=== PATIENT | female | born 1950 | race Caucasian/White ===

== ENCOUNTER 2020-03-16 15:18 | Emergency (ER) | payer MEDICARE, SELFPAY ==
[2020-03-16 15:48] VITALS: BP 176/82; PULSE 84; RESP 18; TEMP 37.3; O2SAT 99; BMI 20.5
[2020-03-16 16:56] VITALS: BP 162/90; PULSE 62; TEMP 36.8; O2SAT 99
--- NOTE | 2020-03-16 17:17 | ED_ITS ---
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 Right after that she moved to [place] with her to live on a power boat and cruise around [place]. She denies any fall or injury. However since the surgery she has developed progressively worsening pain and discomfort in her low back to the point that it is intolerable currently. She denies any recent new fall or injury. She she denies any numbness or loss of sensation arm over her perineum or rectum. She denies any urinary retention or incontinence of urine or stool. She has had shooting pain down her right leg. She states that all of her symptoms originally started on the left but now since surgery have moved to the right side. At rest her pain is 5/10 and when she is moving in the pain as shooting it is 6 to 7/10 in intensity. She has had no fever chills or sweats cough shortness of breath chest pain nausea vomiting diarrhea melena hematochezia incontinence of stool or urine or any urinary symptoms. She does not smoke cigarettes. Related Data Home Medications Medication Instructions Recorded Confirmed zolpidem 5 mg PO BEDTIME #0 01/24/17 03/16/20 Previous Rx's Medication Instructions Recorded cyclobenzaprine 10 mg PO TID PRN #15 tab 03/16/20 hydrocodone-acetaminophen [[place]] 1 tab PO Q4-6H PRN #12 tab 03/16/20 ibuprofen 600 mg PO Q6H PRN #30 tab 03/16/20 Allergies Allergy/AdvReac Type Severity Reaction Status Date / Time DEMORAL Allergy Unknown Hallucinati Uncoded 03/16/20 15:53 ng Review of Systems Review of Systems Narrative: Review of systems were all negative except for those mentioned in the history of present illness. Patient History Social History Smoking Status: Never smoker Smoking Status: Never smoker alcohol intake frequency: 0-2 drinks per day Substance Use Type: does not use Exam Narrative Exam Narrative: PHYSICAL EXAM: CONSTITUTIONAL: Awake, Alert, Oriented, Coherent, Cooperative in NAD. Does not appear toxic or ill. HEAD: AT/NC EENT: PERRL, FROM of eyes, no discharge, no nystagmus NOSE:No epistaxis or nasal drainage MOUTH:Oral mucosa is moist and pink, NECK: Supple, no obvious JVD, Trachea is midline without stridor, no palpable LN. SPINE: Patient has mild tenderness to palpation over the lower lumbar spine. There appears to be a curvature in the lumbar spine towards the her left. The surgical scar for the spinal cyst removal appears to be over the sacrum. The patient is tender to palpation over her left SI joint but no tenderness over her right SI joint no tenderness over either sciatic notches. THORAX: No deformity, retractions, chest wall tenderness. LUNGS: Clear, symmetrical breath sounds without respiratory distress. HEART: Normal heart tones, regular rhythm and rate without murmur. ABDOMEN: Soft, non-tender, no guarding, rebound, rigidity or palpable mass. EXTREMITIES: No edema, deformity, tenderness or cyanosis. SKIN: No rash, bruising, petechiae or purpura. NEURO: Awake, alert, oriented, conversive, cranial nerves II-XII are symmetrical , moves all 4 extremities and is ambulatory. The patient seems to have slight wavering and weakness on the right holding it against gravity. However her strength on dorsiflexion and plantar flexion of both feet are symmetrical. Sensation is within normal limits. Patellar reflexes were 0 to 1+ symmetrically. MENTAL HEALTH: Does not appear anxious or depressed. Initial Vital Signs Initial Vital Signs: Vital Signs Temperature 99.2 F 03/16/20 15:48 Pulse Rate 84 03/16/20 15:48 Respiratory Rate 18 03/16/20 15:48 Blood Pressure 176/82 H 03/16/20 15:48 Pulse Oximetry 99 03/16/20 15:48 Course Course Course Narrative: 1745: I was informed that MRI leaves at 4:00 p.m.. The patient may not be able to get her MRI today. I am always concerned when the patient has had surgery on her spine and she continues to have progressively worsening pain with the development of sciatica. At the present time I am check ing inflammatory markers to make sure the patient does not have an infection or possible abscess. I will discuss the options with the patient being advised to return to have arm an MRI. 1755: I discussed with the patient that MRI is not available tonight and she has agreed to return tomorrow for an MRI of her lower back. In the meantime I will discharge her home with a diagnosis of low back pain with sciatica and place her on cyclobenzaprine 10 mg 3 times a day as needed for muscle spasms and [place] 05/325as a rescue medication. Orders Ordered: ED Orders 03/16/20 17:12 MR lumbar spine w con Stat 03/16/20 17:52 C-Reactive Protein Quant Stat Complete Blood Count AUTO DIFF Stat Comprehensive Metabolic Panel Stat Creatine Kinase Stat Erythrocyte Sedimentation Rate Stat Discontinued Medications Morphine Sulfate (Morphine) 4 mg IV NOW ONE Stop: 03/16/20 17:13 Last Admin: 03/16/20 19:00 Dose: 4 mg Documented by: REECE Ondansetron HCl (Zofran) 4 mg IV NOW ONE Stop: 03/16/20 17:17 Last Admin: 03/16/20 19:00 Dose: 4 mg Documented by: REECE Vital Signs Vital signs: Vital Signs - 8 hr 03/16/20 15:48 03/16/20 16:56 03/16/20 18:07 Temperature 99.2 F 98.2 F Pulse Rate 84 62 57 L Respiratory Rate 18 Blood Pressure 176/82 H 162/90 H 172/81 H Pulse Oximetry 99 99 100 MDM - Back Pain/Injury Lab Data Result diagrams: 03/16/20 17:52 03/16/20 17:52 Labs: Lab Results 03/16/20 03/16/20 Range/Units 17:52 17:52 WBC 6.0 (4.5-11.0) X10^3/uL RBC 4.00 (4.0-5.2) X10^6/uL Hgb 12.3 (12.0-16.0) g/dL Hct 36.9 (36-46) % MCV 92.2 (80-100) fL MCH 30.9 (26-34) PG MCHC 33.5 (30-36) % RDW 13.9 (11.6-14.8) % Plt Count 228 (150-400) X10^3/uL Neut % (Auto) 71.5 (50-75) % Lymph % (Auto) 19.5 L (25-40) % [place] % (Auto) 6.9 (3-14) % Eos % (Auto) 1.2 L (2-4) % Baso % (Auto) 0.9 (0-2) % Neut # (Auto) 4300 (5126-6977) /uL Lymph # (Auto) 1200 (4278-8592) /uL [place] # (Auto) 400 (0-900) /uL Eos # (Auto) 100 (0-450) /uL Baso # (Auto) 100 (0-100) /uL ESR 6 (0-20) MM/HR Sodium 135 L (137-145) mmol/L Potassium 4.2 (3.4-5.1) mmol/L Chloride 101 (98-107) mmol/L Carbon Dioxide 31 (22-32) mmol/L BUN 13 (7-17) mg/dL Creatinine 0.69 (0.52-1.04) mg/dL Estimated GFR > 60.0 (>60) mL/min BUN/Creatinine Ratio 18.8 (6-22) Glucose 84 (80-110) mg/dL Calcium 9.6 (8.4-10.2) mg/dL Total Bilirubin 0.7 (0.2-1.3) mg/dL AST 36 (14-36) IU/L ALT 21 (<35) IU/L Alkaline Phosphatase 53 (38-126) U/L Total Creatine Kinase 155 H (30-135) U/L C-Reactive Protein < 0.5 (<1.0) mg/dL Total Protein 6.6 (6.3-8.2) g/dL Albumin 4.2 (3.5-5.0) g/dL Globulin 2.4 (1.7-4.1) g/dL Albumin/Globulin Ratio 1.8 (1.0-2.8) Discharge Plan Departure Patient Disposition: Home Clinical Impression: Acute low back pain Qualifiers: Back pain laterality: midline Sciatica presence: with sciatica Sciatica laterality: sciatica of right side Qualified Code(s): M54.41 - Lumbago with sciatica, right side Sciatica Qualifiers: Laterality: right Qualified Code(s): M54.31 - Sciatica, right side Discharge Date/Time: 03/16/20 19:16 Instructions: DI for Low Back Pain, DI for Sciatica, DI for Back Strain or Sprain Activity Restrictions/Additional Instructions: 1. Return tomorrow arm in the morning to be scheduled for an MRI of your lumbar spine. 2. If you develop worsening pain or discomfort you need to return to the emergency department. 3. Take Cyclobenzaprine 10 mg., 3 times a day for muscle spasms 4. Take [place] 5/325 , 1 tablet every 4-6 hours for sever pain 5. Take Ibuprofen 600 mg every 6 hours for pain Prescriptions: New cyclobenzaprine 10 mg tablet 10 mg PO TID PRN (Reason: muscle spasm) Qty: 15 RF: 0 ibuprofen 600 mg tablet 600 mg PO Q6H PRN (Reason: pain) Qty: 30 RF: 0 hydrocodone-acetaminophen [[place]] 5-325 mg tablet 1 tab PO Q4-6H PRN (Reason: pain) Qty: 12 RF: 0 No Action zolpidem 5 MG tablet 5 mg PO BEDTIME Qty: 0 RF: 0
[2020-03-16 18:00] LABS: Add Manual Diff / Slide Review NO; Basophils Absolute Auto 100 /uL (0-100); Basophils Percent Auto 0.9 % (0-2); Eosinophils Absolute Auto 100 /uL (0-450); Eosinophils Percent Auto 1.2 % (2-4); Hematocrit 36.9 % (36-46); Hemoglobin 12.3 g/dL (12.0-16.0); Lymphocytes Absolute Auto 1200 /uL (1100-4500); Lymphocytes Percent Auto 19.5 % (25-40); Mean Corpuscular HGB Conc 33.5 % (30-36); Mean Corpuscular Hemoglobin 30.9 PG (26-34); Mean Corpuscular Volume 92.2 fL (80-100); Monocytes Absolute Auto 400 /uL (0-900); Monocytes Percent Auto 6.9 % (3-14); Neutrophils Absolute Auto 4300 /uL (1500-7000); Neutrophils Percent Auto 71.5 % (50-75); Platelet Count 228 X10^3/uL (150-400); Red Cell Distribution Width 13.9 % (11.6-14.8)
[2020-03-16 18:07] VITALS: BP 172/81; PULSE 57; O2SAT 100
[2020-03-16 18:13] LABS: Alanine Aminotransferase 21 IU/L (<35); Albumin 4.2 g/dL (3.5-5.0); Albumin Globulin Ratio 1.8 (1.0-2.8); Alkaline Phosphatase 53 U/L (38-126); Aspartate Aminotransferase 36 IU/L (14-36); BUN Creatinine Ratio 18.8 (6-22); Bilirubin Total 0.7 mg/dL (0.2-1.3); Blood Urea Nitrogen 13 mg/dL (7-17); Calcium 9.6 mg/dL (8.4-10.2); Carbon Dioxide 31 mmol/L (22-32); Chloride 101 mmol/L (98-107); Creatine Kinase 155 U/L (30-135); Estimated Glomerular Filt Rate > 60.0 mL/min (>60); Globulin 2.4 g/dL (1.7-4.1); Glucose 84 mg/dL (80-110); HEMOLYSIS < 15 (0-50); Potassium 4.2 mmol/L (3.4-5.1); Sodium 135 mmol/L (137-145); Total Protein 6.6 g/dL (6.3-8.2)
[2020-03-16 18:23] LABS: C-Reactive Protein Quant < 0.5 mg/dL (<1.0); Erythrocyte Sedimentation Rate 6 MM/HR (0-20)
[2020-03-16] MEDS: MORPHINE 4 MG/ML INJ IV (19:00)
[2020-03-16] MEDS: ONDANSETRON 4 MG/2 ML INJ IV (19:00)
== END 2020-03-16 19:16 | disposition home or self-care (01) ==
PROVIDERS: Emergency Provider Emergency Medicine
DX: M54.41 Lumbago with sciatica, right side (principal)
CPT/HCPCS: 36415; 72149; 80053; 82550; 85025; 85651; 86140; 96374; 96375; 99284; J2270; J2405

== ENCOUNTER 2020-03-17 09:12 | Emergency (ER) | payer MEDICARE, SELFPAY ==
--- NOTE | 2020-03-17 09:15 | DI.MRI.S_ITS ---
PROCEDURE: MR LUMBAR SPINE WO/W CON INDICATIONS: L5 S1 surgery end of January, now numbness / tingling legs R>L TECHNIQUE: Noncontrast sagittal T1 spin echo and T2 fast spin echo, sagittal STIR, axial T1 and T2 fast spin echo through the lumbar spine. In cases with scoliosis, additional coronal T2 fast spin echo may be performed. After the administration of contrast, sagittal and axial T1 spin echo with fat saturation through the lumbar spine. COMPARISON: [facility], CT, ABDOMEN/PELVIS WITH CONTRAST, 04/08/2013, 22:09. FINDINGS: Image quality: Excellent. Alignment and curvature: There is mild L2-L3 and L3-L4 retrolisthesis. Marrow: Postsurgical changes compatible with left L5-S1 laminotomy and left partial facetectomy noted. Mild reactive endplate changes noted adjacent to the L 2-L3 disc. Bone island is noted in the L4 vertebral body which is stable compared to prior CT scan of the abdomen and pelvis. No acute vertebral body compression fractures. No suspicious marrow enhancement. Spinal cord: Conus medullaris terminates at the L2 level. Visualized spinal cord demonstrates normal signal, without suspicious enhancement. Paraspinous soft tissues: No paravertebral masses. There is a 1.5 by 2.7 x 4.6 centimeter fluid collection in the posterior paraspinous soft tissues at the level of the L4 and L5 vertebral bodies likely represents small postsurgical seroma, however infected fluid collection can not be differentiated by imaging alone. L1-L2: Loss of disc signal and height. Mild to moderate diffuse disc bulge. Mild bilateral facet hypertrophy. Mild narrowing of the central canal. Mild bilateral neural foraminal narrowing. No neural compression. L2-L3: Loss of disc signal and height. Mild to moderate diffuse disc bulge. Dlrf-mi-[id number] facet hypertrophy. Moderate narrowing of the central canal. Moderate bilateral neural foraminal narrowing. No neural compression. L3-L4: Loss of disc signal. Mild, diffuse disc bulge. Mild bilateral facet hypertrophy. Mild to moderate narrowing of the central canal. Right central/right foraminal disc protrusion. Disc protrusion abuts and displaces the traversing right L4 nerve root. Moderate bilateral neural foraminal narrowing. L4-L5: Loss of disc signal and slight loss of disc height. Mild, diffuse disc bulge. Elin-dq-[id number] bilateral facet hypertrophy. Moderate narrowing of the central canal. Mild to moderate bilateral neural foraminal narrowing. No neural compression. L5-S1: Loss of disc signal. Mild, diffuse disc bulge. Severe bilateral facet hypertrophy. Mild narrowing of the central canal. Moderate right and moderate to severe left neural foraminal narrowing with slight compression of the exiting left L5 nerve root. There is an 8 millimeter synovial cyst projecting off the medial margin of the right facet which abuts and compresses the traversing right S1 nerve root. IMPRESSION: 1. Postsurgical changes compatible with left L5-S1 laminotomy and partial left L5-S1 facetectomy. 2. Fluid collection in the posterior paraspinous soft tissues at the level of the L4 and L5 vertebral bodies likely represents postsurgical seroma, however infected fluid collection cannot be excluded by imaging alone. Recommend correlation with clinical and laboratory data. 3. Multilevel degenerative disease. 4. Multilevel facet arthropathy. 5. Right central/right foraminal L3-L4 disc protrusion. Disc protrusion abuts and displaces the traversing right L4 nerve root. Please correlate with clinical data. 6. Right L5-S1 facet synovial cyst which abuts and compresses the traversing right S1 nerve root. Please correlate with clinical data. 7. Moderate to severe left L5-S1 neural foraminal narrowing with slight compression of the exiting left L5 nerve root. Please correlate with clinical data. Dictated by: Marietta Peterson MD, PhD on 03/17/2020 at 10:55 Approved by: Marietta Peterson MD, PhD on 03/17/2020 at 11:10
[2020-03-17 09:17] VITALS: BP 125/62; PULSE 74; RESP 14; TEMP 37; O2SAT 98
--- NOTE | 2020-03-17 10:10 | PC.NURSE ---
Patient to MRI at this time.
--- NOTE | 2020-03-17 10:56 | ED_ITS ---
HPI - Back Pain/Injury General Chief Complaint: Back Pain/Injury Stated Complaint: MRI, pain in rt leg Time Seen by Provider: 03/17/20 10:27 Source: patient Limitations: no limitations History of Present Illness HPI Narrative: CC: Follow up for an MRI of her back from yesterday HPI: The patient is a 69-year-old female who in January had surgery on her back and she reports that a cyst was removed from her spinal cord and spinal canal. Since then the patient has developed progressively worsening lower back pain. Her surgical procedure occurred in [place] and then she moved with her to their power boat here in [place] to tour the [facility]. The patient states that she has progressively developed recurrent worsening pain in her low back but instead of left-sided sciatica she has developed numbness and tingling and shooting pains down her right leg to the level of her knee. The pain and discomfort seems to be worse with walking. She denies any recent fall or injury. We attempted to obtain an MRI yesterday however MRI was not available so she returned this morning arm to have her MRI. The patient states that they were discharged to late yesterday and were unable to get her prescriptions filled. The patient states that she has noticed no change in her pain and discomfort since yesterday. In the past the patient was seen in the pain clinic and received a an epidural steroid injection which seemed to helps her pain and discomfort significantly. At this time the patient denies any fever chills sweats cough shortness of breath chest pain nausea vomiting incontinence of urine or stool. Related Data Home Medications Medication Instructions Recorded Confirmed zolpidem 5 mg PO BEDTIME #0 01/24/17 03/16/20 Previous Rx's Medication Instructions Recorded cyclobenzaprine 10 mg PO TID PRN #15 tab 03/16/20 hydrocodone-acetaminophen [[facility]] 1 tab PO Q4-6H PRN #12 tab 03/16/20 ibuprofen 600 mg PO Q6H PRN #30 tab 03/16/20 prednisone 40 mg PO DAILY #10 tab 03/17/20 Allergies Allergy/AdvReac Type Severity Reaction Status Date / Time meperidine [From Demerol] Allergy Unknown Verified 03/17/20 09:59 Review of Systems Review of Systems Narrative: The patient's review of systems were all negative except for those mentioned in the history of present illness. Patient History Social History Smoking Status: Never smoker Smoking Status: Never smoker alcohol intake frequency: 0-2 drinks per day Substance Use Type: does not use Exam Narrative Exam Narrative: PHYSICAL EXAM: CONSTITUTIONAL: Awake, Alert, Oriented, Coherent, Cooperative in NAD. Does not appear toxic or ill. The patient is sitting upright in bed. HEAD: AT/NC EENT: PERRL, FROM of eyes, NOSE:No epistaxis or nasal drainage NECK: Supple, no obvious JVD, Trachea is midline without stridor, SPINE: Palpation of the cervical or thoracic spine. The patient has some mild tenderness over her lower lumbar spine. There is no SI joint tenderness at this time nor sciatic notch tenderness. THORAX: No chest wall tenderness. LUNGS: Clear, symmetrical breath sounds without respiratory distress. HEART: Normal heart tones, regular rhythm and rate without murmur. ABDOMEN: Soft, non-tender,no guarding, rebound, rigidity or palpable mass. EXTREMITIES: No edema, deformity, tenderness or cyanosis. NEURO: Awake, alert, oriented, conversive, cranial nerves II-XII are symmetrical , moves all 4 extremities and is ambulatory. Initial Vital Signs Initial Vital Signs: Vital Signs Temperature 98.6 F 03/17/20 09:17 Pulse Rate 74 03/17/20 09:17 Respiratory Rate 14 03/17/20 09:17 Blood Pressure 125/62 03/17/20 09:17 Pulse Oximetry 98 03/17/20 09:17 Course Course Course Narrative: 1057: The patient's MRI has been completed the report remains pending at this time. The patient's laboratory tests were all ordered yesterday. MRI was not available yesterday so the patient agreed to return to day to have her MRI. The patient in January recently had surgery to remove a cyst from her spinal column in the lower lumbar upper sacral region. An MRI has been ordered to rule out a recurrent cyst, hematoma or abscess. Her inflammatory markers obtained yesterday were all within normal limits and I think it is a low probability that the patient has developed an abscess without fever. 1128: The MRI of the patient's lumbar spine reveals: MPRESSION: 1. Postsurgical changes compatible with left L5-S1 laminotomy and partial left L5-S1 facetectomy. 2. Fluid collection in the posterior paraspinous soft tissues at the level of the L4 and L5 vertebral bodies likely represents postsurgical seroma, however infected fluid collection cannot be excluded by imaging alone. Recommend correlation with clinical and laboratory data. 3. Multilevel degenerative disease. 4. Multilevel facet arthropathy. 5. Right central/right foraminal L3-L4 disc protrusion. Disc protrusion abuts and displaces the traversing right L4 nerve root. Please correlate with clinical data. 6. Right L5-S1 facet synovial cyst which abuts and compresses the traversing right S1 nerve root. Please correlate with clinical data. 7. Moderate to severe left L5-S1 neural foraminal narrowing with slight compression of the exiting left L5 nerve root. Please correlate with clinical data. The patient's labs were all performed yesterday no additional labs were performed today. Orders Ordered: Discontinued Medications Prednisone (Deltasone) 60 mg PO NOW ONE Stop: 03/17/20 11:39 Last Admin: 03/17/20 11:49 Dose: 60 mg Documented by: JUAN Vital Signs Vital signs: Vital Signs - 8 hr 03/17/20 09:17 Temperature 98.6 F Pulse Rate 74 Respiratory Rate 14 Blood Pressure 125/62 Pulse Oximetry 98 MDM - Back Pain/Injury Medical Records Attestation: I reviewed the patient's medical records. Lab Data Attestation: I reviewed the patient's lab results. Discharge Plan Departure Patient Disposition: Home Clinical Impression: Seroma, Synovial cyst Acute low back pain Qualifiers: Back pain laterality: right Sciatica presence: with sciatica Sciatica laterality: sciatica of right side Qualified Code(s): M54.41 - Lumbago with sciatica, right side Sciatica Qualifiers: Laterality: right Qualified Code(s): M54.31 - Sciatica, right side Radiculopathy Qualifiers: Spinal region: lumbar Qualified Code(s): M54.16 - Radiculopathy, lumbar region Discharge Date/Time: 03/17/20 12:12 Instructions: DI for Low Back Pain, DI for Sciatica, DI for Back Spasm Activity Restrictions/Additional Instructions: 1. You need to be seen by your primary care physician so that you can be referred to the Pain Clinic for a possible epidural steroid injection. 2. Take the medications that were prescribed for you yesterday and picked him up from the pharmacy today. 3. Take the prednisone as prescribed to help reduce the swelling around the nerve. 4. If you develop worsening pain or fever you need to return to the emergency department. 5. A seroma is a collection of clear fluid like a blister from inflammation and surgery. If this becomes red hot and more swollen you need to return to the emergency department to be evaluated. Your white blood count from yesterday in inflammatory markers were all within normal limits and negative indicating that this is not infectious at this time. Prescriptions: New prednisone 20 mg tablet 40 mg PO DAILY Qty: 10 RF: 0 No Action zolpidem 5 MG tablet 5 mg PO BEDTIME Qty: 0 RF: 0 cyclobenzaprine 10 mg tablet 10 mg PO TID PRN (Reason: muscle spasm) Qty: 15 RF: 0 ibuprofen 600 mg tablet 600 mg PO Q6H PRN (Reason: pain) Qty: 30 RF: 0 hydrocodone-acetaminophen [[facility]] 5-325 mg tablet 1 tab PO Q4-6H PRN (Reason: pain) Qty: 12 RF: 0 Referrals: Hipolito Cruz MD [Physician] - (herniated discs and radiculopathy)
[2020-03-17 11:38] VITALS: BP 110/67; PULSE 66; RESP 15; O2SAT 97
[2020-03-17 11:40] VITALS: BP 110/67; PULSE 71; RESP 17; O2SAT 98
[2020-03-17] MEDS: predniSONE 20 MG TABLET 60 MG PO (11:49)
== END 2020-03-17 12:12 | disposition home or self-care (01) ==
PROVIDERS: Emergency Provider Emergency Medicine
DX: M54.41 Lumbago with sciatica, right side (principal); M54.16 Radiculopathy, lumbar region; M71.38 Other bursal cyst, other site; L76.34 Postprocedural seroma of skin and subcutaneous tissue following other procedure
CPT/HCPCS: 72158; 99284